=== PATIENT | female | born 1985 | race Caucasian/White ===

== ENCOUNTER 2018-10-03 15:29 | Emergency (ER) | payer OTHER ==
--- NOTE | 2018-10-03 15:51 | PDOC ---
Rapid Medical Evaluation Time Seen by Provider: 10/03/18 15:42 Medical Evaluation: Allergies Allergy/AdvReac Type Severity Reaction Status Date / Time No Known Allergies Allergy Verified 10/03/18 15:50 10/03/18 15:50 I have performed a brief in-person evaluation of this patient. The patient presents with a chief complaint of:URI sxs since yesterday, children w/ similar sxs Pertinent physical exam findings:well george and stable I have ordered the following:nothing The patient will proceed to the ED for further evaluation. Discharge Disposition - Diagnosis URI (upper respiratory infection) Qualifiers: URI type: unspecified viral URI Qualified Code(s): J06.9 - Acute upper respiratory infection, unspecified - Referrals - Patient Instructions - Post Discharge Activity
[2018-10-03 15:54] VITALS: BP 135/83; PULSE 101; TEMP 99.1; BMI 61.4
[2018-10-03] MEDS ORDERED: LORATADINE 10 MG TABLET PO ONE (16:56)
[2018-10-03] MEDS ORDERED: ACETAMINOPHEN 500 MG TABLET (FP) PO ONE (16:56)
--- NOTE | 2018-10-03 16:56 | PDOC ---
History of Present Illness - General Chief Complaint: Cold Symptoms Stated Complaint: VOMITING/HEADACHE/ COUGHING Time Seen by Provider: 10/03/18 15:42 History Source: Patient Exam Limitations: No Limitations - History of Present Illness Initial Comments: 10/03/18 16:53 32 year old female with no significant medical or surgical history presents with reports of uri symptoms since Wednesday. Patient reports productive coughing with yellowish phelgm, general malaise and head pressure. Denies fever or chills. Took no medication so far Timing/Duration: reports: getting worse Severity: reports: mild Possible Cause: Yes: no prior episodes Modifying Factors: improves with: coughing, rest Associated Symptoms: reports: cough, muscle aches, nasal congestion Aspirin Received prior to arrival: Yes: no aspirin today ASA Contraindications(Core Measure): Yes: Allergy Beta Saurabh Contraindications(Core Measure): Yes: Not Prescribed Beta Saurabh Given by EMS(Core Measure): No Beta Saurabh Taken at Home(Core Measure): No Beta Saurabh Not Indicated at this Time(Core Measure): No Past History - Travel Traveled outside of the country in the last 30 days: No Close contact w/someone who was outside of country & ill: No - Past Medical History Allergies/Adverse Reactions: Allergies Allergy/AdvReac Type Severity Reaction Status Date / Time No Known Allergies Allergy Verified 10/03/18 15:50 Home Medications: Ambulatory Orders Acetaminophen 500 mg PO TID #30 tablet 10/03/18 Loratadine 10 mg PO DAILY #10 capsule 10/03/18 Asthma: No Cancer: No Cardiac Disorders: No COPD: No Diabetes: No HTN: No Seizures: No Thyroid Disease: No - Immunization History Td Vaccination: (2011) Immunization Up to Date: Yes - Suicide/Smoking/Psychosocial Hx Smoking Status: No Smoking History: Current every day smoker Have you smoked in the past 12 months: Yes Number of Cigarettes Smoked Daily: 2 If you are a former smoker, when did you quit?: 08/02/10 Information on smoking cessation initiated: No 'Breaking Loose' booklet given: 10/12/13 Hx Alcohol Use: No Drug/Substance Use Hx: No Substance Use Type: Alcohol Hx Substance Use Treatment: No Respiratory Specific PMHX - Complaint Specific PMHX Angina: No Bronchitis: No Pulmonary Embolus: No TB (Tuberculosis): No Review of Systems - Review of Systems Able to Perform ROS?: Yes Is the patient limited [place] proficient: No Constitutional: Yes: Malaise. No: Chills, Fever HEENTM: Yes: Nose Congestion. No: Throat Pain Respiratory: No: Shortness of Breath, Wheezing Cardiac (ROS): No: Chest Pain, Lightheadedness, Palpitations ABD/GI: No: Abdominal Distended, Blood Streaked Bowels, Poor Appetite, Poor Fluid Intake, Vomiting, Indigestion : No: Dysuria, Hematuria Musculoskeletal: Yes: Muscle Pain Integumentary: No: Dryness, Erythema, Flushing Neurological: Yes: Headache. No: Numbness, Paresthesia *Physical Exam - Vital Signs Last Vital Signs Temp Pulse Resp BP Pulse Ox 99.1 F 101 H 18 135/83 100 10/03/18 15:51 10/03/18 15:51 10/03/18 15:51 10/03/18 15:51 10/03/18 15:51 - Physical Exam General Appearance: Yes: Nourished, Appropriately Dressed HEENT: positive: TMs Normal, Pharynx Normal Neck: positive: Supple. negative: Lymphadenopathy (R), Lymphadenopathy (L) Respiratory/Chest: positive: Lungs Clear, Labored Respiration Cardiovascular: positive: Regular Rhythm, Regular Rate Extremity: positive: Normal Capillary Refill Neurologic: positive: Fully Oriented, Alert Medical Decision Making - Medical Decision Making 10/03/18 16:55 32 year old female with no significant medical or surgical history presents with reports of uri symptoms since Wednesday. Plan antihistamine analgesia *DC/Admit/Observation/Transfer Diagnosis at time of Disposition: URI (upper respiratory infection) Qualifiers: URI type: unspecified viral URI Qualified Code(s): J06.9 - Acute upper respiratory infection, unspecified - Discharge Dispostion Disposition: HOME Condition at time of disposition: Good Decision to Admit order: No - Prescriptions Prescriptions: Acetaminophen 500 mg PO TID #30 tablet Loratadine 10 mg PO DAILY #10 capsule - Referrals Referrals: Parker Echeverria MD [Primary Care Provider] - - Patient Instructions Printed Discharge Instructions: DI for Viral Upper Respiratory Infection -- Adult Additional Instructions: Drink plenty fluids Take medication as prescribed Call primary physician for follow up appointment - Post Discharge Activity Forms/Work/School Notes: Back to Work
[2018-10-03] MEDS ORDERED: LORATADINE 10 MG TABLET ONE (16:59)
[2018-10-03] MEDS ORDERED: ACETAMINOPHEN 500 MG TABLET (FP) ONE (16:59)
== END 2018-10-03 17:49 | disposition home or self-care (01) ==
LOC: JERFT 15:29
DX: J06.9 Acute upper respiratory infection, unspecified (principal)
CPT/HCPCS: 99281-25

== ENCOUNTER 2023-01-12 14:57 | Emergency (ER) | payer OTHER ==
[2023-01-12 16:07] VITALS: BP 112/81; PULSE 85; RESP 18; TEMP 99.1; BMI 28.3
== END 2023-01-12 16:17 | disposition home or self-care (01) ==
LOC: FER 14:57
PROC: 0HQGXZZ Repair Left Hand Skin, External Approach (ICD-10-PCS; principal; 2023-01-12)
DX: S61.211A Laceration without foreign body of left index finger without damage to nail, initial encounter (principal); S61.213A Laceration without foreign body of left middle finger without damage to nail, initial encounter; S61.210A Laceration without foreign body of right index finger without damage to nail, initial encounter; S01.81XA Laceration without foreign body of other part of head, initial encounter; W26.0XXA Contact with knife, initial encounter
CPT/HCPCS: 99282-25